=== PATIENT | female | born 1970 | race Caucasian/White ===

== ENCOUNTER 2017-02-20 12:01 | Emergency (ER) | payer OTHER ==
[~2017-02-20] VITALS: Ht 175.3 cm; Wt 90.7 kg
[2017-02-20 12:01] VITALS: BP 99/79
[~2017-02-20 12:01] MED LIST: ATIVAN0.5 MG PO; CELECOXIB100 MG PO; COUMADIN7.5 MG PO; FLEXERIL PO; KEPPRA 500 MG500 M1 PO; NAPROSYN500 MG PO; NEURONTIN600 MG PO; OLANZAPINE5 MG PO; ONDANSETRON ODT4 MG PO; OXYCONTIN20 M1 PO; REQUIP0.5 MG PO; TRAZODONE HCL50 MG PO; VITAMIN D 5050000 I1 PO
[2017-02-20] MEDS ORDERED: COUMADIN 5 MG TA5 M1 PO (12:46)
[2017-02-20] MEDS ORDERED: ASPIR 8181 MG PO (12:47)
[2017-02-20] MEDS ORDERED: LIPITOR40 MG PO (12:48)
[2017-02-20] MEDS ORDERED: LYRICA 75 MG CA75 MG PO (12:49)
[2017-02-20] MEDS ORDERED: TYLENOL EXTRA500 MG PO (12:50)
[2017-02-20] MEDS ORDERED: MOBIC15 MG PO (12:53)
[2017-02-20] MEDS ORDERED: ANTIVERT25 MG PO (13:16)
== END 2017-02-20 13:28 | disposition home or self-care (01) ==
LOC: ER 12:01
DX: Z76.0 Encounter for issue of repeat prescription (principal); R42 Dizziness and giddiness; I69.90 Unspecified sequelae of unspecified cerebrovascular disease; F17.210 Nicotine dependence, cigarettes, uncomplicated; F10.99 Alcohol use, unspecified with unspecified alcohol-induced disorder; Z90.710 Acquired absence of both cervix and uterus; Z90.89 Acquired absence of other organs; Z90.49 Acquired absence of other specified parts of digestive tract; Z88.1 Allergy status to other antibiotic agents; Z88.5 Allergy status to narcotic agent; Z91.040 Latex allergy status; Z88.7 Allergy status to serum and vaccine

== ENCOUNTER 2018-02-18 11:47 | Emergency (ER) | payer OTHER ==
[~2018-02-18] VITALS: Ht 154.9 cm; Wt 86.6 kg
[~2018-02-18 11:47] MED LIST changes: +ANTIVERT25 MG PO; +ASPIR 8181 MG PO; +COUMADIN 5 MG TA5 M1 PO; +LIPITOR40 MG PO; +LYRICA 75 MG CA75 MG PO; +MOBIC15 MG PO; +TYLENOL EXTRA500 MG PO
[2018-02-18 13:29] LABS: HEMATOCRIT 47.8 % (37.0-47.0); HEMOGLOBIN 16.7 gm/dL (12.0-15.0); MCH 32.6 pg (26.0-34.0); MCV 93.3 fL (80.0-100.0); RBC 5.12 mil/uL (4.20-5.00); RDW 14.5 % (10.5-14.5); WBC 8.1 thou/uL (4.0-11.0)
[2018-02-18 13:33] LABS: CALCIUM 9.3 mg/dL (8.5-10.1); CREATININE 0.7 mg/dL (0.6-1.0); POTASSIUM 3.6 mmol/L (3.5-5.1)
[2018-02-18 14:20] LABS: URINE BILIRUBIN NEGATIVE (Negative); URINE BLOOD NEGATIVE (Negative); URINE CLARITY CLOUDY; URINE COLOR YELLOW; URINE GLUCOSE-RANDOM* NEGATIVE (Negative); URINE KETONES NEGATIVE (Negative); URINE LEUKOCYTES-REFLEX NEGATIVE (Negative); URINE NITRITE-REFLEX NEGATIVE (Negative); URINE PROTEIN (DIPSTICK) NEGATIVE (Negative); URINE SPECIFIC GRAVITY >= 1.030 (1.005-1.035); URINE UROBILINOGEN 0.2 E.U./dl (0.2-1.0)
[2018-02-18] MEDS ORDERED: ZOFRAN ODT4 MG PO (14:42)
[2018-02-18] MEDS ORDERED: ULTRAM 50MG TAB50 MG PO (14:42)
[2018-02-18 15:05] VITALS: BP 120/81
== END 2018-02-18 15:06 | disposition home or self-care (01) ==
LOC: ER 11:47
PROVIDERS: Emergency Medicine
DX: M79.10 Myalgia, unspecified site (principal); K90.49 Malabsorption due to intolerance, not elsewhere classified; F17.210 Nicotine dependence, cigarettes, uncomplicated; Z91.040 Latex allergy status; Z88.7 Allergy status to serum and vaccine; Z88.8 Allergy status to other drugs, medicaments and biological substances; Z88.0 Allergy status to penicillin; Z90.710 Acquired absence of both cervix and uterus; Z90.89 Acquired absence of other organs; Z86.73 Personal history of transient ischemic attack (TIA), and cerebral infarction without residual deficits; Z90.49 Acquired absence of other specified parts of digestive tract

== ENCOUNTER 2018-05-16 17:38 | Emergency (ER) | payer OTHER ==
[~2018-05-16] VITALS: Ht 175.3 cm; Wt 86.2 kg
[~2018-05-16 17:38] MED LIST changes: +ULTRAM 50MG TAB50 MG PO; +ZOFRAN ODT4 MG PO
[2018-05-16] MEDS ORDERED: ERYTHROMYCIN E3.5 G3 OPHTHALMIC (18:25)
[2018-05-16 19:00] VITALS: BP 134/74
== END 2018-05-16 19:11 | disposition home or self-care (01) ==
LOC: ER 17:38
DX: H00.014 Hordeolum externum left upper eyelid (principal); F17.210 Nicotine dependence, cigarettes, uncomplicated; Z88.0 Allergy status to penicillin; Z88.8 Allergy status to other drugs, medicaments and biological substances; Z91.040 Latex allergy status; Z88.7 Allergy status to serum and vaccine; Z90.710 Acquired absence of both cervix and uterus; Z90.89 Acquired absence of other organs; Z86.73 Personal history of transient ischemic attack (TIA), and cerebral infarction without residual deficits; Z90.49 Acquired absence of other specified parts of digestive tract

== ENCOUNTER 2018-06-06 19:04 | Emergency (ER) | payer OTHER ==
[~2018-06-06] VITALS: Ht 175.3 cm; Wt 86.2 kg
[~2018-06-06 19:04] MED LIST changes: +ERYTHROMYCIN E3.5 G3 OPHTHALMIC
[2018-06-06 20:24] VITALS: BP 107/65
[2018-06-06] MEDS ORDERED: ACETAMINOPHEN-1 EAC1 PO (20:38)
[2018-06-06 20:56] LABS: INR 1.4; PROTIME 14.6 Seconds (9.3-11.4)
== END 2018-06-06 21:20 | disposition home or self-care (01) ==
LOC: ER 19:04
PROVIDERS: Emergency Medicine
DX: S70.02XA Contusion of left hip, initial encounter (principal); G81.94 Hemiplegia, unspecified affecting left nondominant side; F17.210 Nicotine dependence, cigarettes, uncomplicated; Z79.01 Long term (current) use of anticoagulants; Z90.710 Acquired absence of both cervix and uterus; Z90.89 Acquired absence of other organs; Z86.73 Personal history of transient ischemic attack (TIA), and cerebral infarction without residual deficits; Z90.49 Acquired absence of other specified parts of digestive tract; Z88.0 Allergy status to penicillin; Z88.1 Allergy status to other antibiotic agents; Z91.040 Latex allergy status; Z88.7 Allergy status to serum and vaccine; Z88.8 Allergy status to other drugs, medicaments and biological substances; W05.0XXA Fall from non-moving wheelchair, initial encounter; Y93.89 Activity, other specified; Y92.89 Other specified places as the place of occurrence of the external cause; Y99.8 Other external cause status

== ENCOUNTER 2018-06-09 09:06 | Emergency (ER) | payer OTHER ==
[~2018-06-09] VITALS: Ht 175.3 cm; Wt 86.2 kg
[~2018-06-09 09:06] MED LIST changes: +ACETAMINOPHEN-1 EAC1 PO
[2018-06-09 09:32] LABS: ABSOLUTE NEUTROPHILS 8.9 thou/uL (1.4-8.2); BASOPHILS 0.6 % (0.0-2.0); EOSINOPHILS 0.2 % (0.0-3.0); HEMATOCRIT 47.4 % (37.0-47.0); HEMOGLOBIN 16.6 gm/dL (12.0-15.0); LYMPHOCYTES 18.8 % (24.0-44.0); MCH 32.2 pg (26.0-34.0); MCV 92.1 fL (80.0-100.0); MONOCYTES 6.1 % (1.0-8.0); PLATELET COUNT 272 thou/uL (150-400); POLYS 74.3 % (36.0-66.0); RBC 5.15 mil/uL (4.20-5.00); RDW 13.7 % (10.5-14.5)
[2018-06-09 09:43] LABS: CALCIUM 9.5 mg/dL (8.5-10.1); CREATININE 0.9 mg/dL (0.6-1.0); POTASSIUM 3.3 mmol/L (3.5-5.1)
[2018-06-09 09:47] LABS: ALBUMIN 4.1 g/dL (3.4-5.0); TOTAL BILIRUBIN 1.8 mg/dL (<0.1-1.0); TOTAL PROTEIN 7.6 g/dL (6.4-8.2)
[2018-06-09 10:27] LABS: URINE CLARITY SL HAZY; URINE COLOR DK YELLOW; URINE GLUCOSE-RANDOM* NEGATIVE (Negative); URINE PROTEIN (DIPSTICK) TRACE (Negative)
[2018-06-09 10:28] LABS: ICTOTEST (BILI CONFIRMATORY) Negative (Negative); URINE BILIRUBIN NEGATIVE (Negative); URINE BLOOD TRACE (Negative); URINE KETONES 3+ (Negative); URINE LEUKOCYTES-REFLEX NEGATIVE (Negative); URINE NITRITE-REFLEX POSITIVE (Negative); URINE REDUCING SUBSTANCE NEGATIVE
[2018-06-09 10:35] LABS: CASTS None Seen /LPF (None Seen); MUCUS >6 Heavy strn/LPF (None Seen); SQUAMOUS >10 Many /LPF (0-3)
[2018-06-09 10:36] LABS: BACTERIA-REFLEX 1-9 Few /HPF (None Seen); CRYSTALS None Seen /LPF (None Seen); URINE RBC 0-2 Rare /HPF (0-2); URINE WBC-REFLEX 0-5 Rare /HPF (0-5)
[2018-06-09] MEDS ORDERED: ZOFRAN ODT4 MG DISSOLVE (11:55)
[2018-06-09] MEDS ORDERED: VALIUM5 MG PO (11:55)
[2018-06-09 12:17] VITALS: BP 110/62
== END 2018-06-09 12:19 | disposition home or self-care (01) ==
LOC: ER 09:06
PROVIDERS: Physician Assistant
DX: R11.2 Nausea with vomiting, unspecified (principal); R19.7 Diarrhea, unspecified; S70.02XD Contusion of left hip, subsequent encounter; F17.210 Nicotine dependence, cigarettes, uncomplicated; Z90.49 Acquired absence of other specified parts of digestive tract; Z90.710 Acquired absence of both cervix and uterus; Z88.0 Allergy status to penicillin; Z88.7 Allergy status to serum and vaccine; Z91.040 Latex allergy status; W05.0XXD Fall from non-moving wheelchair, subsequent encounter

== ENCOUNTER 2018-11-26 12:36 | Emergency (ER) | payer OTHER ==
[~2018-11-26] VITALS: Ht 175.3 cm; Wt 79.4 kg
[~2018-11-26 12:36] MED LIST changes: +VALIUM5 MG PO; +ZOFRAN ODT4 MG DISSOLVE
[2018-11-26] MEDS ORDERED: NORCO 5-325 TA1 EAC1 PO (14:51)
[2018-11-26] MEDS ORDERED: NORFLEX100 MG PO (14:51)
[2018-11-26] MEDS ORDERED: ULTRAM 50MG TAB50 MG PO (15:18)
[2018-11-26 16:02] VITALS: BP 102/56
== END 2018-11-26 15:08 | disposition home or self-care (01) ==
LOC: ER 12:36
DX: M62.830 Muscle spasm of back (principal); F17.210 Nicotine dependence, cigarettes, uncomplicated; Z88.0 Allergy status to penicillin; Z88.7 Allergy status to serum and vaccine; Z88.8 Allergy status to other drugs, medicaments and biological substances; Z91.040 Latex allergy status; Z98.51 Tubal ligation status; Z90.710 Acquired absence of both cervix and uterus; Z90.49 Acquired absence of other specified parts of digestive tract; Z86.73 Personal history of transient ischemic attack (TIA), and cerebral infarction without residual deficits; Z98.890 Other specified postprocedural states

== ENCOUNTER 2018-12-31 11:22 | Emergency (ER) | payer OTHER ==
[~2018-12-31] VITALS: Ht 175.3 cm; Wt 77.1 kg
[~2018-12-31 11:22] MED LIST changes: +NORCO 5-325 TA1 EAC1 PO; +NORFLEX100 MG PO
[2018-12-31] MEDS ORDERED: OXYBUTYNIN 5 MG5 M1 PO (11:30)
[2018-12-31 12:46] VITALS: BP 149/89
== END 2018-12-31 12:46 | disposition home or self-care (01) ==
LOC: ER 11:22
DX: S40.022A Contusion of left upper arm, initial encounter (principal); F17.210 Nicotine dependence, cigarettes, uncomplicated; Z88.0 Allergy status to penicillin; Z88.8 Allergy status to other drugs, medicaments and biological substances; Z91.040 Latex allergy status; Z88.7 Allergy status to serum and vaccine; Z90.710 Acquired absence of both cervix and uterus; Z90.89 Acquired absence of other organs; Z86.73 Personal history of transient ischemic attack (TIA), and cerebral infarction without residual deficits; Z90.49 Acquired absence of other specified parts of digestive tract; X58.XXXA Exposure to other specified factors, initial encounter; Y92.89 Other specified places as the place of occurrence of the external cause; Y93.89 Activity, other specified; Y99.8 Other external cause status

== ENCOUNTER 2019-01-13 09:31 | Emergency (ER) | payer OTHER ==
[~2019-01-13] VITALS: Ht 175.3 cm; Wt 77.1 kg
[~2019-01-13 09:31] MED LIST changes: +OXYBUTYNIN 5 MG5 M1 PO
[2019-01-13 10:14] LABS: URINE BILIRUBIN NEGATIVE (Negative); URINE BLOOD 3+ (Negative); URINE COLOR YELLOW; URINE GLUCOSE-RANDOM* NEGATIVE (Negative); URINE KETONES NEGATIVE (Negative); URINE LEUKOCYTES NEGATIVE (Negative); URINE NITRITE NEGATIVE (Negative); URINE PROTEIN (DIPSTICK) NEGATIVE (Negative); URINE SPECIFIC GRAVITY >= 1.030 (1.005-1.035); URINE UROBILINOGEN 0.2 E.U./dl (0.2-1.0)
[2019-01-13 10:16] LABS: URINE CLARITY HAZY
[2019-01-13 10:24] LABS: CASTS None Seen /LPF (None Seen); CRYSTALS None Seen /LPF (None Seen); SQUAMOUS >10 Many /LPF (0-3); URINE RBC 0-2 Rare /HPF (0-2); URINE WBC 0-5 Rare /HPF (0-5)
[2019-01-13 10:29] LABS: ABSOLUTE NEUTROPHILS 5.5 thou/uL (1.4-8.2); BASOPHILS 0.9 % (0.0-2.0); EOSINOPHILS 0.4 % (0.0-3.0); HEMATOCRIT 49.1 % (37.0-47.0); HEMOGLOBIN 16.9 gm/dL (12.0-15.0); LYMPHOCYTES 28.7 % (24.0-44.0); MCHC 34.4 g/dL (28.0-37.0); MONOCYTES 5.1 % (1.0-8.0); PLATELET COUNT 270 thou/uL (150-400); POLYS 64.9 % (36.0-66.0); RBC 5.28 mil/uL (4.20-5.00); RDW 14.5 % (10.5-14.5); WBC 8.4 thou/uL (4.0-11.0)
[2019-01-13 10:37] LABS: CALCIUM 9.4 mg/dL (8.5-10.1); CREATININE 0.7 mg/dL (0.6-1.0); POTASSIUM 4.4 mmol/L (3.5-5.1)
[2019-01-13 10:43] LABS: ALBUMIN 3.9 g/dL (3.4-5.0); TOTAL BILIRUBIN 0.5 mg/dL (<0.1-1.0)
[2019-01-13 11:58] VITALS: BP 110/41
== END 2019-01-13 12:01 | disposition home or self-care (01) ==
LOC: ER 09:31
PROVIDERS: Emergency Medicine
DX: N20.0 Calculus of kidney (principal); F17.210 Nicotine dependence, cigarettes, uncomplicated; Z88.0 Allergy status to penicillin; Z88.8 Allergy status to other drugs, medicaments and biological substances; Z91.040 Latex allergy status; Z88.7 Allergy status to serum and vaccine; Z90.710 Acquired absence of both cervix and uterus; Z90.89 Acquired absence of other organs; Z86.73 Personal history of transient ischemic attack (TIA), and cerebral infarction without residual deficits; Z90.49 Acquired absence of other specified parts of digestive tract

== ENCOUNTER 2019-08-26 09:12 | Emergency (ER) | payer OTHER ==
[~2019-08-26] VITALS: Ht 175.3 cm; Wt 76.2 kg
[2019-08-26 10:40] VITALS: BP 133/67
== END 2019-08-26 10:50 | disposition home or self-care (01) ==
LOC: ER 09:12
DX: M25.552 Pain in left hip (principal); M25.562 Pain in left knee; F17.210 Nicotine dependence, cigarettes, uncomplicated; Z98.890 Other specified postprocedural states; Z90.711 Acquired absence of uterus with remaining cervical stump; Z98.51 Tubal ligation status; Z90.89 Acquired absence of other organs; Z86.73 Personal history of transient ischemic attack (TIA), and cerebral infarction without residual deficits; Z90.49 Acquired absence of other specified parts of digestive tract; Z79.899 Other long term (current) drug therapy; Z79.01 Long term (current) use of anticoagulants; Z88.0 Allergy status to penicillin; Z88.8 Allergy status to other drugs, medicaments and biological substances; Z91.040 Latex allergy status; Z88.7 Allergy status to serum and vaccine; W05.0XXA Fall from non-moving wheelchair, initial encounter; Y93.89 Activity, other specified; Y92.89 Other specified places as the place of occurrence of the external cause; Y99.8 Other external cause status

== ENCOUNTER 2020-08-29 21:10 | Emergency (ER) | payer OTHER ==
[~2020-08-29] VITALS: Ht 175.3 cm; Wt 77.1 kg
[2020-08-29] MEDS ORDERED: MOBIC7.5 MG PO (22:24)
[2020-08-29 22:52] VITALS: BP 124/67
== END 2020-08-29 22:53 | disposition home or self-care (01) ==
LOC: ER 21:10
DX: M65.4 Radial styloid tenosynovitis [de Quervain] (principal); F17.210 Nicotine dependence, cigarettes, uncomplicated; Z88.0 Allergy status to penicillin; Z88.6 Allergy status to analgesic agent; Z91.040 Latex allergy status; Z88.7 Allergy status to serum and vaccine; Z79.01 Long term (current) use of anticoagulants; Z79.899 Other long term (current) drug therapy; Z90.710 Acquired absence of both cervix and uterus; Z86.73 Personal history of transient ischemic attack (TIA), and cerebral infarction without residual deficits; Z98.890 Other specified postprocedural states